=== PATIENT | female | born 1995 | race Caucasian/White ===

== ENCOUNTER 2017-12-20 10:47 | Emergency (ER) | payer OTHER ==
[2017-12-20] MEDS ORDERED: PROMETHAZINE 25 MG/ML VIAL ONE (11:22)
[2017-12-20 11:32] LABS: Absolute Lymphocytes (CBC) 1.9 K/uL (0.7-4.9); Absolute Monocytes 0.6 K/uL (0.1-1.3); Absolute Neutrophil 5.6 K/uL (1.8-8.0); Basophils % 0.7 % (0-1.3); Eosinophils % 1.2 % (0-4.4); Hematocrit 40.1 % (36.0-45.0); Lymphocytes % 22.6 % (15.3-44.8); MCH 28.6 pg (27.0-35.0); MCV 84.1 fL (80-100); MPV 9.4 fL (7.6-11.3); Monocytes % 7.4 % (3.3-12.3); RBC Red Blood Cell Count 4.76 M/uL (3.86-4.86)
[2017-12-20 11:54] LABS: Urine Blood NEGATIVE (NEG); Urine Glucose NEGATIVE (NEG); Urine Protein NEGATIVE (NEG)
[2017-12-20 12:09] LABS: BUN Blood Urea Nitrogen 10 mg/dL (7-18); Bicarbonate 24 mmol/L (21-32); Glucose Level 90 mg/dL (74-106); HCG, Quantitative 19687 mIU/mL (1-3); Potassium 4.1 mmol/L (3.5-5.1); Sodium Level 136 mmol/L (136-145)
--- NOTE | 2017-12-20 12:46 | ER ---
Nurse's Notes [facility] Name: Liborio Houston Age: 21 yrs Sex: Female : 1995 Arrival Date: 12/20/2017 Time: 10:50 Bed 13 Private MD: Out, [facility] Diagnosis: Less than 8 weeks gestation of Presentation: 12/20 10:56 Presenting complaint: Patient states: is approx 6 weeks , started having lower iw abd cramping and nausea this morning X 2 hours, denies vaginal bleeding. Transition of care: patient was not received from another setting of care. Onset of symptoms was December 20, 2017. Risk Assessment: Do you want to hurt yourself or someone else? Patient reports no desire to harm self or others. Initial Sepsis Screen: Does the patient meet any 2 criteria? No. Patient's initial sepsis screen is negative. Does the patient have a suspected source of infection? No. Patient's initial sepsis screen is negative. Care prior to arrival: None. 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 - Social history:: Smoking status: Patient/guardian denies using tobacco. - Ebola Screening: : Patient negative for fever greater than or equal to 101.5 degrees Fahrenheit, and additional compatible Ebola Virus Disease symptoms Patient denies exposure to infectious person Patient denies travel to an Ebola-affected area in the 21 days before illness onset No symptoms or risks identified at this time. Screenin:11 Abuse screen: Denies threats or abuse. Denies injuries from another. Nutritional ph screening: No deficits noted. Tuberculosis screening: No symptoms or risk factors identified. Fall Risk None identified. Assessment: 11:12 General: Appears in no apparent distress. comfortable, well groomed, Behavior is calm, ph cooperative, appropriate for age. Pain: Complains of pain in suprapubic area. Neuro: Level of Consciousness is awake, alert, obeys commands, Oriented to person, place, time, situation. Cardiovascular: Capillary refill < 3 seconds Patient's skin is warm and dry. Respiratory: Airway is patent Respiratory effort is even, unlabored. GI: Abdomen is non-distended, obese, Bowel sounds present X 4 quads. Abd is soft and non tender X 4 quads. Reports lower abdominal pain, nausea, Patient currently denies constipation, diarrhea, vomiting. : Reports cramping, Denies discharge, vaginal bleeding. Derm: Skin is intact, is healthy with good turgor, Skin is pink, warm \T\ dry. Musculoskeletal: Circulation, motion, and sensation intact. Range of motion: intact in all extremities. 12:30 Reassessment: Patient appears in no apparent distress at this time. Patient and/or ph family updated on plan of care and expected duration. Pain level reassessed. Patient is alert, oriented x 3, equal unlabored respirations, skin warm/dry/pink. Pt resting quietly, awaiting US results. 13:10 Reassessment: Patient appears in no apparent distress at this time. Patient and/or ph family updated on plan of care and expected duration. Pain level reassessed. Patient is alert, oriented x 3, equal unlabored respirations, skin warm/dry/pink. Pt d/c home. Vital Signs: 10:56 BP 133 / 94; Pulse 85; Resp 16; Temp 97.9; Pulse Ox 98% on R/A; Weight 95.71 kg; Height iw 5 ft. 7 in. (170.18 cm); Pain 5/10; 12:30 BP 125 / 61; Pulse 78; Resp 18; Temp 98.0; Pulse Ox 99% on R/A; ph 10:56 Body Mass Index 33.05 (95.71 kg, 170.18 cm) iw ED Course: 10:50 Patient arrived in ED. sb2 10:50 [facility]C [facility] kb 10:50 Hans Arango MD is Attending Physician. kb 10:50 Out, [facility] is Private Physician. sb2 10:56 Melissa Cornelius RN is Primary Nurse. ph 10:57 Triage completed. iw 10:58 Arm band placed on. iw 11:11 Patient has correct armband on for positive identification. Bed in low position. Call ph light in reach. Side rails up X 1. Pulse ox on. NIBP on. Warm blanket given. 11:17 Initial lab(s) drawn, by me, sent to lab. Inserted saline lock: 20 gauge in right dh3 antecubital area, using aseptic technique. Blood collected. 11:21 Urine collected: clean catch specimen, clear. dh3 12:31 US Transvaginal Ob In Process Unspecified. EDMS 12:48 Ultrasound completed. Patient tolerated well. Patient moved back from ultrasound. lc3 13:02 No provider procedures requiring assistance completed. IV discontinued, intact, ph bleeding controlled, No redness/swelling at site. Pressure dressing applied. Administered Medications: 11:25 Drug: Phenergan 12.5 mg Route: IVP; Site: right antecubital; ph 13:10 Follow up: Response: No adverse reaction; Nausea is decreased ph Outcome: 12:45 Discharge ordered by . kb 13:10 Discharged to home ambulatory, with significant other. ph 13:10 Condition: good 13:10 Discharge instructions given to patient, Instructed on discharge instructions, follow up and referral plans. medication usage, Demonstrated understanding of instructions, follow-up care, medications, Prescriptions given X 1. 13:11 Patient left the ED. ph Signatures: Dispatcher [employer] EDMS Catie Johnson, SCREEN STRETCHER-C SCREEN STRETCHER-Ckb Zeferino Neves RN RN sg Martine Hollins RN RN Melissa Cornelius RN RN Karen Mcqueen Deanna [facility] Tayla Holden2 Corrections: (The following items were deleted from the chart) 10:58 10:56 Temp 97.9F; sg iw
--- NOTE | 2017-12-20 12:46 | EDPHYS ---
Physician Documentation [facility] Name: Liborio Houston Age: 21 yrs Sex: Female : 1995 Arrival Date: 12/20/2017 Time: 10:50 Bed 13 Private MD: Out, [facility] ED Physician Hans Arango HPI: 12/20 11:22 This 21 yrs old Female presents to ER via Ambulatory with complaints of kb Abdominal Cramping - 6WK PG. 11:22 The patient presents to the emergency department with abdominal pain, of the right kb lower quadrant and left lower quadrant, that started this morning, described as crampy. The estimated gestational age is 6 weeks. course: care: private OB physician, Leakage of Fluid: none appreciated, Ultrasound: the patient has not had an ultrasound, Risk/complications: no obvious risks or complications are appreciated. Previous pregnancies: the patient has never been . Associated signs and symptoms: Pertinent positives: abdominal pain, nausea, Pertinent negatives: chest pain, diarrhea, dysuria, fever, frequency, ruptured membranes, seizure, shortness of breath, vaginal bleeding, vaginal discharge, vomiting. The patient has not experienced similar symptoms in the past. The patient has not recently seen a physician. 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 - Social history:: Smoking status: Patient/guardian denies using tobacco. - Ebola Screening: : Patient negative for fever greater than or equal to 101.5 degrees Fahrenheit, and additional compatible Ebola Virus Disease symptoms Patient denies exposure to infectious person Patient denies travel to an Ebola-affected area in the 21 days before illness onset No symptoms or risks identified at this time. ROS: 11:22 Constitutional: Negative for fever, chills, and weight loss, Cardiovascular: Negative kb for chest pain, palpitations, and edema, Respiratory: Negative for shortness of breath, cough, wheezing, and pleuritic chest pain, Back: Negative for injury and pain, : Negative for injury, bleeding, discharge, and swelling, MS/Extremity: Negative for injury and deformity, Skin: Negative for injury, rash, and discoloration, Neuro: Negative for headache, weakness, numbness, tingling, and seizure. 11:22 Abdomen/GI: Positive for abdominal pain, nausea, abdominal cramps, Negative for vomiting, diarrhea, constipation, abdominal distension, anorexia. Exam: 11:22 Constitutional: This is a well developed, well nourished patient who is awake, alert, kb and in no acute distress. Head/Face: Normocephalic, atraumatic. Chest/axilla: Normal chest wall appearance and motion. Nontender with no deformity. No lesions are appreciated. Cardiovascular: Regular rate and rhythm with a normal S1 and S2. No gallops, murmurs, or rubs. Normal PMI, no JVD. No pulse deficits. Respiratory: Lungs have equal breath sounds bilaterally, clear to auscultation and percussion. No rales, rhonchi or wheezes noted. No increased work of breathing, no retractions or nasal flaring. Back: No spinal tenderness. No costovertebral tenderness. Full range of motion. Skin: Warm, dry with normal turgor. Normal color with no rashes, no lesions, and no evidence of cellulitis. MS/ Extremity: Pulses equal, no cyanosis. Neurovascular intact. Full, normal range of motion. Neuro: Awake and alert, GCS 15, oriented to person, place, time, and situation. Cranial nerves II-XII grossly intact. Motor strength 5/5 in all extremities. Sensory grossly intact. Cerebellar exam normal. Normal gait. 11:22 Abdomen/GI: Inspection: abdomen appears normal, Bowel sounds: normal, in all quadrants, Palpation: soft, in all quadrants, mild abdominal tenderness, in the suprapubic area, right lower quadrant and left lower quadrant. Vital Signs: 10:56 BP 133 / 94; Pulse 85; Resp 16; Temp 97.9; Pulse Ox 98% on R/A; Weight 95.71 kg; Height iw 5 ft. 7 in. (170.18 cm); Pain 5/10; 12:30 BP 125 / 61; Pulse 78; Resp 18; Temp 98.0; Pulse Ox 99% on R/A; ph 10:56 Body Mass Index 33.05 (95.71 kg, 170.18 cm) iw MDM: 10:54 Patient medically screened. [facility] 11:22 Data reviewed: vital signs, nurses notes. Data interpreted: Pulse oximetry: on room air kb is 98 %. Interpretation: normal. 12:43 Counseling: I had a detailed discussion with the patient and/or guardian regarding: the kb historical points, exam findings, and any diagnostic results supporting the discharge/admit diagnosis, lab results, radiology results, the need for outpatient follow up, an OB/Gyne specialist, to return to the emergency department if symptoms worsen or persist or if there are any questions or concerns that arise at home. 12/20 10:55 Order name: Quantitative Hcg; Complete Time: 12:09 kb 12/20 10:55 Order name: Abo/rh Typing; Complete Time: 12:40 kb 12/20 10:55 Order name: Basic Metabolic Panel; Complete Time: 12:09 kb 12/20 10:55 Order name: CBC with Diff; Complete Time: 11:33 kb 12/20 11:34 Order name: Urine Dipstick--Ancillary (enter results); Complete Time: 11:58 bd 12/20 11:34 Order name: Urine --Ancillary (enter results); Complete Time: 11:58 bd 12/20 10:55 Order name: Urine Test (obtain specimen); Complete Time: 11:11 kb 12/20 10:55 Order name: IV Saline Lock; Complete Time: 11:11 kb 12/20 10:55 Order name: Labs collected and sent; Complete Time: 11:11 kb 12/20 10:55 Order name: NPO; Complete Time: 11:11 kb 12/20 10:55 Order name: Urine Dipstick-Ancillary (obtain specimen); Complete Time: 11:11 kb 12/20 12:12 Order name: US Transvaginal Ob; Complete Time: 13:17 kb Administered Medications: 11:25 Drug: Phenergan 12.5 mg Route: IVP; Site: right antecubital; ph 13:10 Follow up: Response: No adverse reaction; Nausea is decreased ph Disposition: 14:53 Co-signature as Attending Physician, Hans Arango MD I agree with the assessment and [facility] plan of care. Disposition: 12/20/17 12:45 Discharged to Home. Impression: Less than 8 weeks gestation of . - Condition is Stable. - Discharge Instructions: First Trimester of , [id number]. - Prescriptions for Diclegis 10- 10 mg Oral tablet,delayed release (DR/EC) - take 1 tablet by ORAL route once daily; 10 tablet. - Medication Reconciliation Form, Thank You Letter, Antibiotic Education, Prescription Opioid Use form. - Follow up: Private Physician; When: 2 - 3 days; Reason: Recheck today's complaints, Continuance of care, Re-evaluation by your physician. Follow up: Emergency Department; When: As needed; Reason: Worsening of condition. Signatures: Dispatcher [employer] EDMS Catie Johnson, PORT CAPTAIN-C PORT CAPTAIN-Hans Espinoza MD MD cha Williams, Irene, JHONATHAN RN Melissa Cornelius RN RN Corrections: (The following items were deleted from the chart) 13:11 12:45 12/20/2017 12:45 Discharged to Home. Impression: Less than 8 weeks gestation of ph . Condition is Stable. Discharge Instructions: First Trimester of , [id number]. Forms are Medication Reconciliation Form, Thank You Letter, Antibiotic Education, Prescription Opioid Use. Follow up: Private Physician; When: 2 - 3 days; Reason: Recheck today's complaints, Continuance of care, Re-evaluation by your physician. Follow up: Emergency Department; When: As needed; Reason: Worsening of condition. kb
--- NOTE | 2017-12-20 13:03 | RAD REPORT ---
EXAM DESCRIPTION: US - Transvaginal OB - 12/20/2017 12:43 pm CLINICAL HISTORY: ABD CRAMPING, COMPARISON: No comparisons FINDINGS: A single gestational sac is seen within the uterus. The shape of the sac is within normal limits for gestational age. Within the sac is a single pole with crown-rump length of 3 mm, cor relating to estimated gestational age of 5 weeks 6 days. Estimated date of delivery is 08/15/2018. Heart rate is 123 BPM. The placenta is not yet developed due to early gestational age. 6 mm inferior subchorionic bleed note d. The maternal adnexa and ovaries are within normal limits. Normal Doppler blood flow was demonstrated to both ovaries. IMPRESSION: Single live early intrauterine gestation with estimated gestational age of 5 weeks 6 day s, LINA 08/15/2018. 6 mm inferior subchorionic bleed noted.
[2017-12-20 13:24] VITALS: BP 125/61; TEMP 98; O2SAT 99
== END 2017-12-20 13:11 | disposition home or self-care (01) ==
LOC: ER 10:47
DX: O26.891 Other specified pregnancy related conditions, first trimester (principal)
CPT/HCPCS: 36415; 76817; 80048; 81003; 81025; 84702; 85025; 86900; 86901; 96374; 99284; J2550